=== PATIENT | male | born 1965 | race Caucasian/White ===

== ENCOUNTER 2020-04-20 12:42 | Emergency (ER) | payer OTHER ==
[~2020-04-20] VITALS: Ht 188 cm; Wt 102.0 kg
[2020-04-20] MEDS ORDERED: ONDANSETRON PF 4 MG/2 ML VIAL. IVP ONE (13:00)
[2020-04-20] MEDS ORDERED: IV NORMAL SALINE 1,000ML 1,000 ML IV ONE (13:00)
[2020-04-20] MEDS ORDERED: ONDANSETRON PF 4 MG/2 ML VIAL. ONE (13:01)
[2020-04-20 13:29] LABS: BASO # 0.1 x10^3/uL (0.0-0.2); BASO % 1 % (0-3); EOS % 0 % (0-3); HEMATOCRIT 42.4 % (39.0-53.0); HEMOGLOBIN 14.9 g/dL (13.0-17.5); LYMPH # 1.6 x10^3/uL (1.0-4.8); LYMPH % 15 % (24-48); MEAN CORPUSCULAR HEMOGLOBIN 32 pg (25-35); MEAN CORPUSCULAR HGB CONC 35 g/dL (31-37); MEAN CORPUSCULAR VOLUME 91 fL (79-100); MONO # 0.5 x10^3/uL (0.0-1.1); MONO % 5 % (0-9); NEUT # 8.3 x10^3uL (1.8-7.7); NEUT % 79 % (31-73); PLATELET COUNT 217 x10^3/uL (140-400); RED BLOOD COUNT 4.69 x10^6/uL (4.30-5.70); RED CELL DISTRIBUTION WIDTH 12.7 % (11.5-14.5); WHITE BLOOD COUNT 10.4 x10^3/uL (4.0-11.0)
--- NOTE | 2020-04-20 13:29 | RAD ---
INDICATION: Reason: SOB / Spl. Instructions: / History: COMPARISON: None. FINDINGS: 2 frontal views of the chest obtained. Cardiac silhouette is unremarkable. There is some mild interstitial prominence at the lower lungs. Nodular opacity projecting over the left lower lung of this could be from a nipple shadow. IMPRESSION: * Mild interstitial opacities at the lung bases which could be from small foci of atelectasis or early infiltrate Electronically signed by: Omari Moreno MD (04/20/2020 1:27 PM) [id number]
[2020-04-20 13:32] LABS: CALCIUM 9.8 mg/dL (8.5-10.1); CREATININE 1.1 mg/dL (0.7-1.3); GFR 69.8; POTASSIUM 3.9 mmol/L (3.5-5.1)
[2020-04-20 13:38] LABS: ALBUMIN 4.2 g/dL (3.4-5.0); ALBUMIN/GLOBULIN RATIO 1.5 (1.0-1.7); TOTAL BILIRUBIN 1.3 mg/dL (0.2-1.0)
--- NOTE | 2020-04-20 13:40 | PHYS DOC ---
Past History Past Medical History: High Cholesterol, Hypertension Past Surgical History: No Surgical History Alcohol Use: Occasionally General Adult EDM: Chief Complaint: ABDOMINAL PAIN HPI: HPI: 55-year-old male presents with vomiting and diarrhea. The patient has had vomiting 2 days ago and stayed home from work. He had diffuse abdominal cramping. This improved and he was able go to work all day yesterday. He got up this morning, ate breakfast and felt okay. He went to work, but by 8 AM he was feeling very fatigued and had upper abdominal cramping again. He has had a couple episodes of diarrhea. No vomiting today. Patient denies fever chills. He also has felt a bit short of breath and had chest heaviness. Patient has no cardiac history. He had a cardiac cath several years ago that was reported to be negative. No previous abdominal surgeries. Review of Systems: Review of Systems: Constitutional: Denies fever or chills Eyes: Denies change in visual acuity HENT: Denies nasal congestion or sore throat Respiratory: shortness of breath Cardiovascular: Denies chest pain or edema GI: Epigastric abdominal pain, nausea, vomiting, diarrhea : Denies dysuria Musculoskeletal: Denies back pain or joint pain Integument: Denies rash Neurologic: Denies headache, focal weakness or sensory changes Endocrine: Denies polyuria or polydipsia Lymphatic: Denies swollen glands Psychiatric: Denies depression or anxiety Heart Score: Risk Factors: Risk Factors: DM, Current or recent (<one month) smoker, HTN, HLP, family history of CAD, obesity. Risk Scores: Score 0 - 3: 2.5% MACE over next 6 weeks - Discharge Home Score 4 - 6: 20.3% MACE over next 6 weeks - Admit for Clinical Observation Score 7 - 10: 72.7% MACE over next 6 weeks - Early Invasive Strategies Current Medications: Current Meds: Current Medications Medications (Trade) Dose Ordered Sig/Santi Start Time Stop Time Status Last Admin Dose Admin Ondansetron HCl (Zofran) 4 mg STK-MED ONCE 04/20/20 13:01 04/20/20 13:01 DC Sodium Chloride 1,000 ml @ 1,000 mls/hr 1X ONCE 04/20/20 13:00 04/20/20 13:59 04/20/20 13:09 1,000 MLS/HR Allergies: Allergies: Allergies Coded Allergies Type Severity Reaction Last Updated Verified No Known Drug Allergies 04/20/20 No Physical Exam: PE: Constitutional: Well developed, well nourished, no acute distress, non-toxic appearance. [] HENT: Normocephalic, atraumatic, bilateral external ears normal, oropharynx moist, no oral exudates, nose normal. [] Eyes: PERRLA, EOMI, conjunctiva normal, no discharge. [] Neck: Normal range of motion, no tenderness, supple, no stridor. [] Cardiovascular: Heart rate regular rhythm, no murmur [] Lungs & Thorax: Bilateral breath sounds clear to auscultation [] Abdomen: Bowel sounds normal, soft, mild epigastric tenderness, no masses, no pulsatile masses. [] Skin: Warm, dry, no erythema, no rash. [] Back: No tenderness, no CVA tenderness. [] Extremities: No tenderness, no cyanosis, no clubbing, ROM intact, no edema. [] Neurologic: Alert and oriented X 3, normal motor function, normal sensory function, no focal deficits noted. [] Psychologic: Affect normal, judgement normal, mood normal. [] Current Patient Data: Labs: Laboratory Tests Test 04/20/20 13:08 Sodium Level 139 mmol/L (136-145) Potassium Level 3.9 mmol/L (3.5-5.1) Chloride Level 102 mmol/L (98-107) Carbon Dioxide Level 25 mmol/L (21-32) Anion Gap 12 (6-14) Blood Urea Nitrogen 21 mg/dL (8-26) Creatinine 1.1 mg/dL (0.7-1.3) Estimated GFR (Cockcroft-Gault) 69.8 BUN/Creatinine Ratio 19 (6-20) Glucose Level 117 mg/dL (70-99) H Calcium Level 9.8 mg/dL (8.5-10.1) Total Bilirubin Pending Aspartate Amino Transferase (AST) Pending Alanine Aminotransferase (ALT) Pending Alkaline Phosphatase Pending Total Protein Pending Albumin Pending Albumin/Globulin Ratio Pending Vital Signs: Vital Signs Date Time Temp Pulse Resp B/P (MAP) Pulse Ox O2 Delivery O2 Flow Rate FiO2 04/20/20 12:54 98.6 75 18 185/106 (132) 100 Room Air EKG: EKG: Sinus rhythm, rate 65, normal axis, no ST elevations or depressions, PVC. [] Radiology/Procedures: Radiology/Procedures: [] Impressions: INDICATION: Reason: SOB / Spl. Instructions: / History: COMPARISON: None. FINDINGS: 2 frontal views of the chest obtained. Cardiac silhouette is unremarkable. There is some mild interstitial prominence at the lower lungs. Nodular opacity projecting over the left lower lung of this could be from a nipple shadow. IMPRESSION: * Mild interstitial opacities at the lung bases which could be from small foci of atelectasis or early infiltrate Electronically signed by: Frandy Moreno MD (04/20/2020 1:27 PM) [id number] DICTATED AND SIGNED BY: FRANDY MORENO MD DATE: 04/20/20 132 CC: THELMA TRUONG DO; YAYA ANDERS ~ Course & Med Decision Making: Course & Med Decision Making Pertinent Labs and Imaging studies reviewed. (See chart for details) The patient's chest x-ray is unremarkable. His labs are unremarkable. His troponin is negative. His EKG is unremarkable. I believe he is just coming down with a viral illness. His blood pressure has been elevated. He did take his blood pressure medicine this morning. I have given him 0.2 of clonidine and and hydralazine to improve his blood pressure. We gave him a GI cocktail and Pepcid for his abdominal discomfort. The patient is having difficulty falling asleep and would like to just go home and rest. I will give him 1 mg of Ativan p.o. before his discharge. His is driving home. I will discharge him with a prescription for Zofran. He is stable for discharge at this time. [] Dragon Disclaimer: Chrissy Disclaimer: This electronic medical record was generated, in whole or in part, using a voice recognition dictation system. Departure Departure: Impression: Primary Impression: Nausea vomiting and diarrhea Additional Impression: Hypertension Qualified Codes: I10 - Essential (primary) hypertension Disposition: 01 HOME/RESIDENCE PRIOR TO ADM Condition: STABLE Referrals: YAYA ANDERS (PCP) Patient Instructions: Diet for Diarrhea, Adult, Nausea and Vomiting, Dkti-cv-Tits Scripts Ondansetron (ONDANSETRON ODT) 4 Mg Tab.rapdis 1 TAB PO PRN Q6-8HRS PRN for VOMITING, #16 TAB Prov: TRUONG,THELMA DO 04/20/20 Justification of Admission: Justification of Admission: Justification of Admission Dx: N/A THELMA TRUONG DO Apr 20, 2020 13:40
--- NOTE | 2020-04-20 13:57 | EKG ---
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
[2020-04-20] MEDS ORDERED: cloNIDine HCL 0.1 MG TABLET PO ONE (14:15)
[2020-04-20 14:16] LABS: CLARITY,URINE CLEAR; COLOR,URINE YELLOW
[2020-04-20 14:17] LABS: BILIRUBIN,URINE NEG (NEG); GLUCOSE,URINE NEG (NEG); NITRITE,URINE NEG (NEG); UROBILINOGEN,URINE 0.2 mg/dL (0.2 mg/dL)
[2020-04-20 14:18] LABS: BACTERIA,URINE 0 /HPF (0-FEW); WBC,URINE OCC /HPF (0-4)
[2020-04-20] MEDS ORDERED: ONDA4TAB12 PO (14:24)
[2020-04-20] MEDS ORDERED: LORazepam 1 MG TABLET PO ONE (14:30)
[2020-04-20] MEDS ORDERED: LIDO:MAALOX 1:1 20 ML SINGLE DOSE. ONE (14:55)
[2020-04-20] MEDS ORDERED: FAMOTIDINE 20 MG/2 ML VIAL ONE (14:55)
[2020-04-20] MEDS ORDERED: FAMOTIDINE 20 MG/2 ML VIAL IVP ONE (15:00)
[2020-04-20] MEDS ORDERED: LIDO:MAALOX 1:1 20 ML SINGLE DOSE. PO ONE (15:00)
[2020-04-20] MEDS ORDERED: hydrALAZINE 20 MG/ML VIAL. IV ONE (15:30)
[2020-04-20 15:33] VITALS: BP 163/90
== END 2020-04-20 15:38 | disposition home or self-care (01) ==
LOC: ER 12:42
DX: R11.2 Nausea with vomiting, unspecified (principal); R19.7 Diarrhea, unspecified; I10 Essential (primary) hypertension; R10.13 Epigastric pain; E78.00 Pure hypercholesterolemia, unspecified
CPT/HCPCS: 36415; 71045; 80053; 81001; 83690; 84484; 85025; 93005; 96361; 96374; 96375; 99285; J0360; J2405; J3490; J7030